=== PATIENT | female | born 1980 | race African-American/Black ===

== ENCOUNTER 2018-12-06 09:05 | Observation (INO) | payer MEDICAID ==
[~2018-12-06] VITALS: Ht 160 cm; Wt 59.4 kg
[2018-12-06] MEDS ORDERED: PREN-380 PO (09:34)
[2018-12-06] MEDS ORDERED: ACET-2619 PO (09:34)
[2018-12-06 09:49] VITALS: BP 107/58
== END 2018-12-06 10:50 | disposition home or self-care (01) ==
LOC: MLD 09:05
PROVIDERS: ADMIT Obstetrics & Gynecology; ATTEND Obstetrics & Gynecology
DX: O26.892 Other specified pregnancy related conditions, second trimester (principal); R10.2 Pelvic and perineal pain; K08.89 Other specified disorders of teeth and supporting structures; Z3A.22 22 weeks gestation of pregnancy
CPT/HCPCS: 81000; G0378